=== PATIENT | female | born 1955 | race Caucasian/White ===

== ENCOUNTER 2016-05-23 11:56 | Day surgery (SDC) | payer OTHER ==
[~2016-05-23] VITALS: Ht 165.1 cm; Wt 89.9 kg
[2016-05-23 12:58] VITALS: Ht 165.1 cm; Wt 89.9 kg
[2016-05-23] MEDS ORDERED: ASPI81TA3 PO (13:16)
[2016-05-23] MEDS ORDERED: MTF1000T PO (13:16)
[2016-05-23] MEDS ORDERED: BENA20TA48 PO (13:16)
[2016-05-23] MEDS ORDERED: HYD25 PO (13:16)
[2016-05-23] MEDS ORDERED: ATOR40TA68 PO (13:16)
[2016-05-23] MEDS ORDERED: ATEN50TA PO (13:16)
[2016-05-23 13:37] VITALS: BP 197/93; PULSE 55; RESP 20
[2016-05-23] MEDS ORDERED: MIDAZOLAM 1 MG/ML 2 ML INJ ONE ×2 (14:53)
[2016-05-23] MEDS ORDERED: FENTAnyl 50 MCG/ML VIAL ONE (14:53)
[2016-05-23 15:12] VITALS: BP 143/74; PULSE 52; RESP 16
--- NOTE | 2016-05-23 15:12 | GILP ---
DATE OF PROCEDURE: 05/23/2016 PREOPERATIVE DIAGNOSIS: Screening colonoscopy. PROCEDURE DONE: Colonoscopy. POSTOPERATIVE DIAGNOSIS: Normal. DESCRIPTION OF PROCEDURE: The patient was put in left lateral decubitus. After obtaining informed consent, she was sedated, monitored on oximetry, EKG, blood pressure and 3 mg IV Versed and 75 mcg o f fentanyl were given. Rectal exam done which was normal. Advanced an Olympus video colonoscope al l the way to cecum. Cecum, ascending colon, transverse colon, descending colon, sigmoid colon and r ectum including retroflexion normal. The patient had no complications except for small external hem orrhoids. Plan will be to follow her. Repeat colonoscopy in 10 years and follow up with primary MD with radha cannon every year. Dictated By: SHAY ARMANDO Conf#: [id number] DID#: [id number] CC: Joaquin Gay;*EndCC*
== END 2016-05-23 15:51 | disposition home or self-care (01) ==
LOC: GIL 11:56
PROVIDERS: ATTEND Internal Medicine
DX: Z12.11 Encounter for screening for malignant neoplasm of colon (principal); E11.9 Type 2 diabetes mellitus without complications; I10 Essential (primary) hypertension; E78.5 Hyperlipidemia, unspecified
CPT/HCPCS: 45378; J2250; J3010